=== PATIENT | female | born 1985 | race Caucasian/White ===

== ENCOUNTER 2020-03-27 13:34 | Emergency (ER) | payer OTHER, SELFPAY ==
--- NOTE | ~2020-03-27 | CT_ITS ---
EXAMINATION: CT abdomen pelvis w con DATE: 03/27/2020 14:46 INDICATION: Epigastric abdominal pain. TECHNIQUE: Computed tomography (CT) of the abdomen and pelvis was performed with 100 mL Omnipaque 350 intravenous contrast. Automated exposure control and iterative reconstruction technique were employe d. The dose-length product was 1249.60 mGy-cm. COMPARISON: None. FINDINGS: The visualized portions of the lung bases are clear without pneumonia or pleural effusion. The heart size is normal. No pericardial effusion. The liver and spleen are normal. There are gallsto kassandra in the gallbladder, which is normal in size. The pancreas, adrenal glands, and kidneys are normal . There are no dilated loops of bowel. The appendix is normal. There are no pathologically enlarged l ymph nodes. There is no free intraperitoneal fluid. The bones are unremarkable. IMPRESSION: 1. Cholelithiasis. No evidence of acute cholecystitis. Reviewed, dictated and finalized at location A.
--- NOTE | ~2020-03-27 | XR_ITS ---
EXAMINATION: XR chest 2V DATE: 03/27/2020 14:15 INDICATION: Chest pain. TECHNIQUE: Frontal and lateral views of the chest were obtained. COMPARISON: None. FINDINGS: The chest demonstrates clear lungs without pneumonia, pleural effusion, or pneumothorax. Th e heart size is normal. IMPRESSION: 1. No acute cardiopulmonary disease. Reviewed, dictated and finalized at location A.
--- NOTE | 2020-03-27 13:36 | ECG_ITS ---
Measurements Intervals [place] Rate: 94 P: 42 [place]: 150 QRS: 8 QRSD: 89 T: 37 QT: 351 QTc: 439 Interpretive Statements SINUS RHYTHM POSSIBLE LEFT ATRIAL ENLARGEMENT INCOMPLETE RIGHT BUNDLE BRANCH BLOCK BORDERLINE ECG Electronically Signed On 03-27-2020 15:01:33 CDT by Tigre Robles D.O.
[2020-03-27 13:49] VITALS: BP 142/80; PULSE 93; RESP 15; TEMP 36.6; O2SAT 100
--- NOTE | 2020-03-27 13:56 | ED.ABDPAIN ---
HPI - Abdominal Pain General Chief Complaint: Chest Pain Stated Complaint: chest pain Time Seen by Provider: 03/27/20 13:37 History of Present Illness HPI narrative: Epigastric pain since yesterday. Sharp. Radiating to the back. Associated with nausea and vomiting. Seen at urgent care 2 days ago and given prilosec without improvment. No fever, diarrhea, constipation Related Data Allergies Allergy/AdvReac Type Severity Reaction Status Date / Time tramadol Allergy Unknown SEIZURE Verified 03/27/20 13:56 codeine AdvReac Unknown Vomiting Verified 03/27/20 13:56 Review of Systems Review of Systems: All systems reviewed & are unremarkable except as noted in HPI and below Constitutional: Constitutional: Denies fever(s) ENT: Denies sore throat Cardiovascular: Cardiovascular: Denies chest pain Respiratory: Respiratory: Denies dyspnea Gastrointestinal: Gastrointestinal: Reports abdominal pain, Denies constipation, Denies diarrhea, Reports nausea and Reports vomiting Genitourinary: Genitourinary: Denies dysuria Neurologic: Reports weakness PMFSH Past Medical History Medical History GERD (gastroesophageal reflux disease) Social History Social History Gender identity (if verbalized by the patient): Female Exam Const: General: healthy appearing, no acute distress and alert Orientation/consciousness: patient oriented x3 HENMT: Head: normal to inspection Chest: Chest palpation & inspection: no tenderness Resp: Effort & Inspection: normal respiratory effort Auscultation: clear to auscultation bilaterally, no rales, no rhonchi and no wheezes Cardio: Jugular venous distension: no JVD Rate: regular rate Rhythm: regular rhythm Heart sounds: no murmurs GI: Inspection: non-distended GI Palp: Yes Soft to palpation and Yes Tenderness to palpation present (GI) (epigastric) Skin: General skin exam: normal color Neuro: General: patient oriented x3, moves all extremities and CN's II-XI intact bilaterally Speech: normal speech Extrem: General: no edema Psych: Appearance: well kempt Affect: normal affect Course Vital Signs Vital signs: Vital Signs Temperature 36.6 C 03/27/20 13:49 Pulse Rate 93 03/27/20 13:49 Respiratory Rate 15 03/27/20 13:49 Blood Pressure 142/80 H 03/27/20 13:49 Pulse Oximetry 100 03/27/20 13:49 Temperature 36.6 C 03/27/20 13:49 Pulse Rate 93 03/27/20 13:49 Respiratory Rate 15 03/27/20 13:49 Blood Pressure 142/80 H 03/27/20 13:49 Pulse Oximetry 100 03/27/20 13:49 MDM - Abdominal Pain MDM Narrative Medical decision making narrative: Story most consistent with gall bladder disease. Gallstones on CT without evidence of acute colecystitis. Offered PO pain medication, she declined. Will given her general surgery folow-up Differential Diagnosis Differential diagnosis: Likely pancreatitis and small bowel obstruction Medical Records Attestation: I reviewed the patient's medical records. Lab Data Attestation: I reviewed the patient's lab results. Result diagrams: 03/27/20 15:00 03/27/20 15:00 Labs: Lab Results 03/27/20 03/27/20 03/27/20 Range/Units 14:40 15:00 15:00 WBC 8.2 (4.5-10.0) K/mm3 RBC 4.47 (4.2-5.4) M/mm3 Hgb 12.4 (12.0-15.0) g/dL Hct 37.0 (37.0-47.0) % MCV 82.8 (80-100) fl MCH 27.7 (26-34) pg MCHC 33.5 (32-36) g/dl RDW 13.2 (11.5-14.5) % Plt Count 333 (150-375) k/mm3 MPV 9.9 (7.4-10.4) fl Immature Gran % (Auto) 0.2 (0-0.5) % Neut % (Auto) 69.8 (45.5-73.1) % Lymph % (Auto) 24.2 (18.3-44.2) % [place] % (Auto) 4.6 (2.6-8.5) % Eos % (Auto) 0.7 (0-4.4) % Baso % (Auto) 0.5 (0.2-1.2) % Lymph # (Auto) 1.99 (0.9-3.2) K/mm3 [place] # (Auto) 0.4 (0.1-0.6) K/mm3 Eos # (Auto) 0.1 (0-0.3) K/mm3 Baso # (Auto) 0.0 (0.0-0.1
[2020-03-27] MEDS: ASPIRIN 81 MG CHEWABLE TABLET 324 MG PO (13:59)
--- NOTE | 2020-03-27 14:09 | PC.NURSE ---
this RN tried to start IV 2 times, another RN tried 2x times to start IV with no success.
--- NOTE | 2020-03-27 14:33 | PC.NURSE ---
Pt taken to CT scan
[2020-03-27 14:53] LABS: Estimated CRCL calculation 88 ml/min; Estimated Glomerular Filt Rate > 60
[2020-03-27 15:08] LABS: Basophils Percent Auto 0.5 % (0.2-1.2); Eosinophils Absolute Auto 0.1 K/mm3 (0-0.3); Eosinophils Percent Auto 0.7 % (0-4.4); Hemoglobin 12.4 g/dL (12.0-15.0); Immature Granulocyte Absolute 0.02 K/mm3 (0.00-0.031); Immature Granulocyte Percent A 0.2 % (0-0.5); Lymphocytes Absolute Auto 1.99 K/mm3 (0.9-3.2); Lymphocytes Percent Auto 24.2 % (18.3-44.2); Mean Corpuscular HGB Conc 33.5 g/dl (32-36); Mean Corpuscular Hemoglobin 27.7 pg (26-34); Mean Corpuscular Volume 82.8 fl (80-100); Mean Platelet Volume 9.9 fl (7.4-10.4); Monocytes Absolute Auto 0.4 K/mm3 (0.1-0.6); Monocytes Percent Auto 4.6 % (2.6-8.5); Neutrophils Absolute Auto 5.7 K/mm3 (1.3-6.7); Neutrophils Percent Auto 69.8 % (45.5-73.1); Platelet Count Result 333 k/mm3 (150-375); Red Blood Count 4.47 M/mm3 (4.2-5.4); Red Cell Distribution Width 13.2 % (11.5-14.5); White Blood Count 8.2 K/mm3 (4.5-10.0)
[2020-03-27 15:20] LABS: Blood Urea Nitrogen 10 mg/dL (7-17); Calcium 8.7 mg/dL (8.4-10.2); Carbon Dioxide 26 mmol/L (22-30); Chloride 102 mmol/L (98-107); Estimated CRCL calculation 98 ml/min; Estimated Glomerular Filt Rate > 60; Glucose 94 mg/dL (65-105); Potassium 3.8 mmol/L (3.4-5.0); Sodium 135 mmol/L (137-145)
[2020-03-27 15:31] LABS: Troponin I < 0.012 ng/mL (0.000-0.034)
[2020-03-27 15:45] LABS: Prothrombin Time 12.9 Seconds (11.1-14.7)
[2020-03-27 15:48] LABS: Partial Thromboplastin Time 25.7 SECONDS (22.3-36.8)
== END 2020-03-27 15:59 | disposition home or self-care (01) ==
PROVIDERS: Emergency Medicine; Emergency Provider Emergency Medicine; PCP Family Medicine
DX: K80.20 Calculus of gallbladder without cholecystitis without obstruction (principal); K21.9 Gastro-esophageal reflux disease without esophagitis; I45.10 Unspecified right bundle-branch block; R94.31 Abnormal electrocardiogram [ECG] [EKG]
CPT/HCPCS: 36415; 71046; 74177; 80048; 81025; 84484; 85025; 85610; 85730; 93005; 99284; A9270; Q9967

== ENCOUNTER 2021-12-23 11:37 | Outpatient (CLI) | payer OTHER, SELFPAY ==
--- NOTE | 2021-12-23 12:05 | ECG_ITS ---
Measurements Intervals [place] Rate: 91 P: 49 [place]: 131 QRS: 16 QRSD: 80 T: 38 QT: 348 QTc: 429 Interpretive Statements SINUS RHYTHM RSR' IN V1 OR V2, PROBABLY NORMAL VARIANT Borderline ECG COMPARED TO ECG 03/27/2020 13:41:56 NO SIGNIFICANT CHANGES Electronically Signed On 12-23-2021 14:10:09 MANDARIN SPEAKING NANNY by Jarrod Torres M.D.
[2021-12-23 12:27] LABS: Alanine Aminotransferase 19 U/L (4-35); Albumin Level 3.7 g/dL (3.5-5.1); Alkaline Phosphatase 58 U/L (38-126); Anion Gap 6 mmol/L (8-16); Aspartate Amino Transferase 22 U/L (14-36); Bilirubin,Total 0.3 mg/dL (0.2-1.3); Blood Urea Nitrogen 6 mg/dL (7-17); Calcium 8.4 mg/dL (8.4-10.2); Carbon Dioxide 20 mmol/L (22-30); Chloride 108 mmol/L (98-107); Estimated Glomerular Filt Rate > 60; Glucose 99 mg/dL (65-110); Lactate Dehydrogenase 364 U/L (313-618); Potassium 3.7 mmol/L (3.4-5.0); Sodium 134 mmol/L (137-145); Uric Acid 2.9 mg/dL (2.5-7.5)
== END 2021-12-23 11:38 | disposition home or self-care (01) ==
PROVIDERS: PCP Family Medicine; Visit Provider Obstetrics & Gynecology
DX: O10.919 Unspecified pre-existing hypertension complicating pregnancy, unspecified trimester (principal); Z3A.00 Weeks of gestation of pregnancy not specified
CPT/HCPCS: 36415; 80053; 83615; 84443; 84550; 87086; 87088; 93005

== ENCOUNTER 2022-01-07 16:32 | Outpatient (CLI) | payer OTHER, SELFPAY ==
[2022-01-14 20:29] LABS: Alpha Fetoprotein Tumor Marker 25.4 ng/mL (<6.1)
== END 2022-01-07 16:33 | disposition home or self-care (01) ==
PROVIDERS: PCP Family Medicine; Visit Provider Obstetrics & Gynecology
DX: Z34.92 Encounter for supervision of normal pregnancy, unspecified, second trimester (principal); Z3A.16 16 weeks gestation of pregnancy
CPT/HCPCS: 36415; 82105

== ENCOUNTER 2022-02-24 16:38 | Outpatient (CLI) | payer OTHER, SELFPAY ==
[2022-02-24 17:15] VITALS: BP 136/67; PULSE 90
[2022-02-24 17:30] VITALS: BP 133/75; PULSE 93
[2022-02-24 17:38] LABS: Appearance Urine Clear (Clear); Bilirubin Urine Negative (Negative); Color Urine Yellow (Yellow); Glucose Urine UA Negative (Negative); Ketones Urine Negative (Negative); Leukocyte Esterase Ur Negative LEU/UL (NEGATIVE); Nitrate Urine Negative (Negative); Protein Urine Negative (Negative); Specific Grav Ur 1.015 (1.001-1.035); Urobilinogen Urine 0.2 mg/dL (<2.0); pH Urine 8.5 (5.0-9.0)
[2022-02-24 17:40] LABS: Basophils Percent Auto 0.3 % (0.2-1.2); Eosinophils Absolute Auto 0.1 K/mm3 (0-0.3); Hematocrit 34.5 % (37.0-47.0); Hemoglobin 11.1 g/dL (12.0-15.0); Immature Granulocyte Absolute 0.05 K/mm3 (0.00-0.031); Immature Granulocyte Percent A 0.4 % (0-0.5); Lymphocytes Absolute Auto 2.47 K/mm3 (0.9-3.2); Lymphocytes Percent Auto 21.2 % (18.3-44.2); Mean Corpuscular HGB Conc 32.2 g/dl (32-36); Mean Corpuscular Hemoglobin 27.3 pg (26-34); Mean Platelet Volume 10.1 fl (7.4-10.4); Monocytes Absolute Auto 0.5 K/mm3 (0.1-0.6); Neutrophils Absolute Auto 8.5 K/mm3 (1.3-6.7); Neutrophils Percent Auto 73.1 % (45.5-73.1); Platelet Count Result 307 k/mm3 (150-375); Red Blood Count 4.06 M/mm3 (4.2-5.4); White Blood Count 11.6 K/mm3 (4.5-10.0)
[2022-02-24 17:43] LABS: Bacteria Urine Trace /hpf; Mucus Urine Rare /lpf; RBC Urine 0-2 /hpf (0-2); Squamous Epithelial Cell Urine Many /hpf (Few); WBC Urine 0-3 /hpf (0-3)
[2022-02-24 17:44] LABS: Add Urine Microscopic? YES; Blood Urine Trace-Intact (Negative)
[2022-02-24 17:45] VITALS: BP 132/68; PULSE 86
[2022-02-24 17:46] LABS: Creatinine Urine 43.9 mg/dL; Total Protein Urine Random 18 mg/dL; Ur Ttl Prot Creatinine Ratio 0.41 mg/mg (0-0.20)
[2022-02-24 17:50] LABS: Alanine Aminotransferase 15 U/L (4-35); Albumin Level 3.6 g/dL (3.5-5.1); Alkaline Phosphatase 81 U/L (38-126); Anion Gap 6 mmol/L (8-16); Aspartate Amino Transferase 20 U/L (14-36); Bilirubin,Total 0.1 mg/dL (0.2-1.3); Blood Urea Nitrogen 6 mg/dL (7-17); Calcium 8.1 mg/dL (8.4-10.2); Carbon Dioxide 23 mmol/L (22-30); Chloride 105 mmol/L (98-107); Estimated Glomerular Filt Rate > 60; Glucose 92 mg/dL (65-110); Potassium 3.8 mmol/L (3.4-5.0); Sodium 134 mmol/L (137-145); Uric Acid 3.1 mg/dL (2.5-7.5)
[2022-02-24 18:00] VITALS: BP 132/67; PULSE 85
[2022-02-24 18:15] VITALS: BP 122/68; PULSE 87
[2022-02-24 18:30] VITALS: BP 126/68; PULSE 84
--- NOTE | 2022-02-24 18:32 | PC.NURSE ---
Notified Dr. Cruz of patient lab results. Plan of care for patient discussed. Dr. Cruz gave order for patient to start 24 hour urine collection and return collection to the OB unit tomorrow (02/25/2022) when completed for testing. Patient also will be given note to not work over 40 hours in a 1 week period for the remainder of her , patient will also be instructed to maintain light activity for the remainder of her . The plan will be discussed with patient upon her discharge from unit.
--- NOTE | 2022-02-24 18:38 | PC.NURSE ---
Plan of care and discharge instructions reviewed with patient. Patient states she is unable to collect her urine for the next 24 hours r/t work conflict. Plan was discussed and patient states the next available time she would be able to start a 24 hour urine collection would be this Tuesday (02/28/2022).
--- NOTE | 2022-02-24 18:42 | PC.NURSE ---
Updated Dr. Cruz. 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 Patient states she would be off of work next on Wednesday 02/28. The plan was discussed that patient would do her 24 hour urine collection on Tuesday and return it to the OB unit following this collection. Dr. Cruz states that she is ok with the collection being done on Tuesday instead of the original plan of starting the collection this evening.
--- NOTE | 2022-02-24 19:15 | PC.NURSE ---
Discharge plan discussed with patient. Patient was instructed to start her 24 hour urine collection on Tuesday and return it to the OB unit following collection. Patient was given a 24 hour collection instructions form to follow for the urine collection. Patient states understanding of the 24 hour urine collection process and denies questions. HIP precautions reviewed with patient. Patient states understanding of HIP precautions and denies questions. Patient was provided handout for Hypertension in . labor precautions reviewed with patient. Patient states understanding and denies questions, a handout was provided to patient. Patient was provided a work/activity instructions note. Patient was instructed to not work over 40 hours in a 1 week period for the remainder of her , patient was also instructed to maintain light activity. Patients states her understanding of these instructions and denies questions. Patient was provided with a copy of these instructions and a note to provide to her employer.
== END 2022-02-24 19:15 | disposition home or self-care (01) ==
LOC: ANHOBOP 16:43 → ANHOBPP 16:45
PROVIDERS: PCP Family Medicine; Visit Provider Obstetrics & Gynecology
DX: O13.2 Gestational [pregnancy-induced] hypertension without significant proteinuria, second trimester (principal); Z3A.27 27 weeks gestation of pregnancy
CPT/HCPCS: 36415; 59025; 80053; 81001; 82570; 84156; 84550; 85025; 87086; 87088; 99199

== ENCOUNTER 2023-07-01 09:06 | Emergency (ER) | payer OTHER, SELFPAY ==
--- NOTE | ~2023-07-01 | XR_ITS ---
EXAMINATION: XR shoulder LT min 2V INDICATION: Left shoulder pain TECHNIQUE: Four views of the left shoulder are submitted. COMPARISON: 03/27/2020 FINDINGS: Normal alignment. No fracture. Glenohumeral and acromioclavicular joint spaces are normal. Soft tissues are unremarkable. IMPRESSION: 1. No acute osseous abnormality. Reviewed, dictated and finalized at location B.
[2023-07-01 09:18] VITALS: BP 138/79; PULSE 96; RESP 16; TEMP 36.8; O2SAT 99
--- NOTE | 2023-07-01 09:55 | ED.UPPEXIN ---
HPI - Extremity Injury (Upper) General Chief Complaint: Extremity Injury, Upper Stated Complaint: left shoulder pain Time Seen by Provider: 07/01/23 09:55 Source: patient Mode of arrival: ambulatory Limitations: no limitations History of Present Illness HPI narrative: 38 yo F presents with c/o L shoulder pain. pt states that her 1 yo was headin for the basement stairs. Some left door open. States she jumped out to catch them and feel onto R side and someone hurt her L shoulder. Reports pain worse with movement. 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 Pt reports contusion to R side but does not have any pain. all systems reviewed and negative except as noted above. Related Data Home Medications Medication Instructions Recorded Confirmed bupropion HCl 150 mg 24 hr tablet, mg PO 07/01/23 07/01/23 extended release phentermine 37.5 mg tablet mg 07/01/23 Allergies Allergy/AdvReac Type Severity Reaction Status Date / Time tramadol Allergy Unknown SEIZURE Verified 07/01/23 09:55 codeine AdvReac Unknown Vomiting Verified 07/01/23 09:55 Review of Systems Review of Systems: CONSTITUTIONAL: Denies fever, chills, or sweats. EYES: Denies visual changes, redness, or discharge. ENT: Denies rhinorrhea, congestion, sore throat, or otalgia. CARDIOVASCULAR: Denies chest pain, palpitations, or edema. RESPIRATORY: Denies cough or dyspnea. GASTROINTESTINAL: Denies abdominal pain, nausea, vomiting, or diarrhea. GENITOURINARY: Denies dysuria or hematuria. SKIN: Denies rash or itching. MUSCULOSKELETAL: Denies back pain, or myalgia. Reports pain to left shoulder. NEUROLOGIC: Denies headache, numbness, or weakness. PSYCHIATRIC: Denies anxiety or depression. All other systems reviewed are negative, except as documented in HPI. [facility] Past Medical History Medical History GERD (gastroesophageal reflux disease) Surgical History Surgical History Hx of gynecological procedure mirena iud insertion - Hx of gynecological procedure 01/18/2018 Family History Family History Grandparent Diabetes mellitus Hypercholesteremia Carcinoma of colon Social History Social History Smoking status: Current some day smoker Alcohol intake: never Substance use: never Occupation/Education: occupation Gender identity (if verbalized by the patient): Female Sexual Orientation (if Verbalized by the Patient): Straight or Heterosexual Comments At time of signature, agree with nursing past medical, surgical, social and family history. There is no relevant family history pertinent to the presenting complaint. Exam Narrative: GENERAL: This is a well-nourished, well-developed patient, in no apparent distress. HEAD: normocephalic, atraumatic. EYES: PERRL. Sclera clear/white. Vision is grossly intact. EARS: External ears normal NOSE: External nose normal NECK: Neck supple, non-tender without lymphadenopathy, masses or thyromegaly. CARDIOVASCULAR: Regular rate and rhythm without murmurs, gallops, or rubs. RESPIRATORY: Clear to auscultation. Breath sounds equal bilaterally. No wheezes, rales, or rhonchi. SKIN: warm, Dry, intact with no suspicious lesions or rash, good texture and turgor. NEURO: awake, alert, and oriented to person, place and time. There were no obvious focal neurologic abnormalities. EXTREMITIES: tenderness to anterior aspect L shoulder. ROM decreased due to pain. cannot lift over head. negative L drop arm test. Course Course Level of Care: Express Care Visit Vital Signs Vital signs: Vital Signs Temperature 36.8 C 07/01/23 09:18 Pulse Rate 96 07/01/23 09:18 Respiratory Rate 16 07/01/23 09:18 Blood Pressure 138/79 07/01/23 09:18 Pulse Oximetry 99 08
== END 2023-07-01 10:59 | disposition home or self-care (01) ==
PROVIDERS: Emergency Provider Nurse Practitioner Family; PCP Family Medicine
DX: S46.912A Strain of unspecified muscle, fascia and tendon at shoulder and upper arm level, left arm, initial encounter (principal); X58.XXXA Exposure to other specified factors, initial encounter; K21.9 Gastro-esophageal reflux disease without esophagitis; F17.200 Nicotine dependence, unspecified, uncomplicated
CPT/HCPCS: 73030; 99213; G0463

== ENCOUNTER 2023-08-22 17:10 | Emergency (ER) | payer OTHER, SELFPAY ==
--- NOTE | ~2023-08-22 | US_ITS ---
CORRECTED REPORT Exam Description [facility] 08/25/23 This report was recreated on 08/25/23. Original report was EXAMINATION: US OB <= 14 weeks fetus w TV DATE: 08/22/2023 18:49 INDICATION: Vaginal bleeding and cramping TECHNIQUE: Real-time transabdominal and transvaginal obstetric ultrasound. FINDINGS: No prior studies for comparison. The uterus measures 10.3 x 6 x 6.1 cm. There is an intrauterine gestational sac, with pole identified. The crown rump length measures 3 mm, which correlates with a estimated gestational age of 5 weeks 6 days. No heart motions detected, possibly simply due to early gestational age. Yolk sac is present. There is a corpus luteal cyst of the right ovary measuring 3.8 cm. Right ovary measures 4.4 x 3.3 x 4 cm. Left ovary measures 2.1 x 1.7 x 2.8 cm. There is normal Doppler signal in both ovaries. IMPRESSION: 1. Intrauterine gestational sac with pole corresponding to 5 week 6 day gestation. No heart motions detected. Considerations include early intrauterine and failed . Recommend follow-up with serial quantitative beta-hCG levels and ultrasound as clinically indicated. 2: Right corpus luteal cyst measuring 3.8 cm. Reviewed, dictated and finalized at location A. MTDD IMPRESSION: 1. Intrauterine gestational sac with pole corresponding to 5 week 6 day g estation. No heart motions detected. Considerations include early intraut erine and failed . Recommend follow-up with serial quant[place] beta-hCG levels and ultrasound as clinically indicated. 2: Right corpus luteal cyst measuring 3.8 cm.
[2023-08-22 17:36] VITALS: BP 158/80; PULSE 99; RESP 16; TEMP 36.3; O2SAT 99
--- NOTE | 2023-08-22 17:40 | ED.GENADULT ---
HPI - General Adult General Chief complaint: Vaginal Bleeding Stated complaint: vag bleed, ?7 wks preg History of Present Illness HPI narrative: Radha Baez is a 38 y/o female about 7 weeks , she has not followed up [facility] OB to confirm intrauterine yet. Comes in today with complaints of mild lower abdominal cramping, light vaginal bleeding yesterday that has become heavier today. Denies nausea/vomiting/fever/ unsure of RH status. Related Data Allergies Allergy/AdvReac Type Severity Reaction Status Date / Time tramadol Allergy Unknown SEIZURE Verified 08/22/23 17:38 codeine AdvReac Unknown Vomiting Verified 08/22/23 17:38 [facility] Past Medical History Medical History GERD (gastroesophageal reflux disease) Surgical History Surgical History Hx of gynecological procedure mirena iud insertion - Hx of gynecological procedure 01/18/2018 Family History Family History Grandparent Diabetes mellitus Hypercholesteremia Carcinoma of colon Social History Social History (Updated 08/17/23 @ 15:26 by Melanie Bentley CMA) Smoking status: Current some day smoker Alcohol intake: never Substance use: never Lack of Transportation: No Lack of Food: Never True Current Housing: I Have Housing Concerned About Future Housing: No Difficulty Paying Gas/Electric Bills: No Difficulty Paying for Meds: No Currently Unemployed: No Education: High School Diploma/GED Difficulty w/ Childcare or Family Care: No Living arrangements: with family Occupation/Education: occupation Gender identity (if verbalized by the patient): Female Sexual Orientation (if Verbalized by the Patient): Straight or Heterosexual Course Vital Signs Vital signs: Vital Signs Temperature 36.3 C L 08/22/23 17:36 Pulse Rate 99 08/22/23 17:36 Respiratory Rate 16 08/22/23 17:36 Blood Pressure 158/80 H 08/22/23 17:36 Pulse Oximetry 99 08/22/23 17:36 Temperature 36.3 C L 08/22/23 17:36 Pulse Rate 99 08/22/23 17:36 Respiratory Rate 16 08/22/23 17:36 Blood Pressure 158/80 H 08/22/23 17:36 Pulse Oximetry 99 08/22/23 17:36 Medical Decision Making Vital Signs Vital Signs: Vital Signs Temperature 36.3 C L 08/22/23 17:36 Pulse Rate 99 08/22/23 17:36 Respiratory Rate 16 08/22/23 17:36 Blood Pressure 158/80 H 08/22/23 17:36 Pulse Oximetry 99 08/22/23 17:36 Temperature 36.3 C L 08/22/23 17:36 Pulse Rate 99 08/22/23 17:36 Respiratory Rate 16 08/22/23 17:36 Blood Pressure 158/80 H 08/22/23 17:36 Pulse Oximetry 99 08/22/23 17:36 Lab Data 08/22/23 17:43 08/22/23 17:43 Labs: Lab Results 08/22/23 08/22/23 Range/Units 17:43 17:44 WBC 11.8 H (4.5-10.0) K/mm3 RBC 4.64 (4.2-5.4) M/mm3 Hgb 11.5 L (12.0-15.0) g/dL Hct 37.1 (37.0-47.0) % MCV 80.0 (80-100) fl MCH 24.8 L (26-34) pg MCHC 31.0 L (32-36) g/dl RDW 15.2 H (11.5-14.5) % Plt Count 354 (150-375) k/mm3 MPV 9.9 (7.4-10.4) fl Immature Gran % (Auto) 0.3 (0-0.5) % Neut % (Auto) 64.9 (45.5-73.1) % Lymph % (Auto) 28.6 (18.3-44.2) % [place] % (Auto) 4.2 (2.6-8.5) % Eos % (Auto) 1.6 (0-4.4) % Baso % (Auto) 0.4 (0.2-1.2) % Lymph # (Auto) 3.37 H (0.9-3.2) K/mm3 [place] # (Auto) 0.5 (0.1-0.6) K/mm3 Eos # (Auto) 0.2 (0-0.3) K/mm3 Baso # (Auto) 0.1 (0.0-0.1) K/mm3 Abs Immat Gran (auto) 0.04 H (0.00-0.031) K/mm3 Absolute Neuts (auto) 7.7 H (1.3-6.7) K/mm3 Absolute Nucleated RBC 0.0 (0.0-0.012) K/mm3 Nucleated RBC % 0.0 (0.0-0.2) % Sodium 136 L (137-145) mmol/L Potassium 3.9 (3.4-5.0) mmol/L Chloride 103 (98-107) mmol/L Carbon Dioxide 26 (22-30) mmol/L Anion Gap 7 L (8-16) mmol/L BUN 8 (7-17)
[2023-08-22 17:56] LABS: Basophils Absolute Auto 0.1 K/mm3 (0.0-0.1); Basophils Percent Auto 0.4 % (0.2-1.2); Eosinophils Absolute Auto 0.2 K/mm3 (0-0.3); Eosinophils Percent Auto 1.6 % (0-4.4); Hematocrit 37.1 % (37.0-47.0); Hemoglobin 11.5 g/dL (12.0-15.0); Immature Granulocyte Absolute 0.04 K/mm3 (0.00-0.031); Immature Granulocyte Percent A 0.3 % (0-0.5); Lymphocytes Absolute Auto 3.37 K/mm3 (0.9-3.2); Lymphocytes Percent Auto 28.6 % (18.3-44.2); Mean Corpuscular Hemoglobin 24.8 pg (26-34); Mean Platelet Volume 9.9 fl (7.4-10.4); Monocytes Absolute Auto 0.5 K/mm3 (0.1-0.6); Monocytes Percent Auto 4.2 % (2.6-8.5); Neutrophils Absolute Auto 7.7 K/mm3 (1.3-6.7); Neutrophils Percent Auto 64.9 % (45.5-73.1); Platelet Count Result 354 k/mm3 (150-375); Red Blood Count 4.64 M/mm3 (4.2-5.4); Red Cell Distribution Width 15.2 % (11.5-14.5); White Blood Count 11.8 K/mm3 (4.5-10.0)
[2023-08-22 18:08] LABS: Alanine Aminotransferase 126 U/L (6-35); Albumin Level 4.4 g/dL (3.5-5.1); Alkaline Phosphatase 69 U/L (38-126); Anion Gap 7 mmol/L (8-16); Aspartate Amino Transferase 90 U/L (14-36); Bilirubin,Total 0.5 mg/dL (0.2-1.3); Blood Urea Nitrogen 8 mg/dL (7-17); Calcium 9.3 mg/dL (8.4-10.2); Carbon Dioxide 26 mmol/L (22-30); Chloride 103 mmol/L (98-107); Estimated CRCL calculation 132 ml/min; Estimated Glomerular Filt Rate > 60; Glucose 98 mg/dL (65-110); Potassium 3.9 mmol/L (3.4-5.0); Sodium 136 mmol/L (137-145)
--- NOTE | 2023-08-22 23:05 | PC.NURSE ---
called patient to room from waiting room, no answer
== END 2023-08-22 23:46 | disposition left against medical advice (07) ==
PROVIDERS: Emergency Provider Nurse Practitioner Family; PCP Family Medicine
DX: O20.9 Hemorrhage in early pregnancy, unspecified (principal); O99.330 Smoking (tobacco) complicating pregnancy, unspecified trimester; F17.200 Nicotine dependence, unspecified, uncomplicated; Z3A.00 Weeks of gestation of pregnancy not specified
CPT/HCPCS: 36415; 76801; 76817; 80053; 84702; 85025; 86850; 86900; 86901; 99199